=== PATIENT | male | born 1990 | race Two or more races ===

== ENCOUNTER 2020-10-13 23:22 | Emergency (ER) | payer MEDICAID ==
[~2020-10-13] VITALS: Ht 180.3 cm; Wt 95.3 kg
[2020-10-14 00:26] LABS: Basophils # (auto) 0.1 10 ^3/uL (0-0.2); Basophils % (auto) 0.6 % (0.0-2.0); Eosinophils # (auto) 0.1 10 ^3/uL (0-0.8); Eosinophils % (auto) 0.7 % (0.0-7.0); Hematocrit 44.9 % (41.0-53.0); Lymphocytes # (auto) 3.4 10 ^3/uL (0.4-5.4); Lymphocytes % (auto) 37.1 % (10.0-50.0); Mean Corpuscular Hemoglobin 32.3 pg (28.0-32.0); Mean Corpuscular Hgb Conc. 33.4 g/dL (32.0-36.0); Mean Corpuscular Volume 96.7 fL (80.0-100.0); Monocytes # (auto) 0.7 10 ^3/uL (0-1.3); Monocytes % (auto) 7.2 % (0.0-12.0); Neutrophils % (auto) 54.4 % (37.0-80.0); Platelet Count (auto) 359 10^3/uL (140-450); Red Blood Cells 4.65 10^6/uL (4.5-5.90); Red Cell Distribution Width 12.6 % (11.8-14.3); White Blood Cell 9.3 10^3/uL (4.4-10.8)
[2020-10-14 00:37] LABS: Alanine Aminotransferase 39 U/L (16-61); Albumin 3.7 g/dL (3.4-5.0); Anion Gap 6 (5-15); Aspartate Aminotransferase 28 U/L (15-37); BUN/Creatinine Ratio 11.8; Blood Urea Nitrogen 10 mg/dL (7-18); Calcium 7.7 mg/dL (8.5-10.1); Carbon Dioxide 23 mmol/L (21-32); Chloride 114 mmol/L (98-107); GFR African American 137 mL/min; GFR Non-African American 113 mL/min; Glucose 90 mg/dL (74-106); Sodium 143 mmol/L (136-145)
[2020-10-14 00:40] LABS: Alkaline Phosphatase 81 U/L (45-117); Bilirubin, Total 0.2 mg/dL (0.2-1.0); Total Protein 6.8 g/dL (6.4-8.2)
[2020-10-14 01:00] VITALS: BP 135/75
[2020-10-14] MEDS: SODIUM CHLORIDE 0.9% 1,000 ML IV ONE (01:21)
== END 2020-10-14 01:25 | disposition home or self-care (01) ==
LOC: EDBD 23:22 → ER 23:43
DX: F10.129 Alcohol abuse with intoxication, unspecified (principal); Y90.8 Blood alcohol level of 240 mg/100 ml or more
CPT/HCPCS: 36415; 80053; 80320; 85025; 99283; J7030